=== PATIENT | female | born 1995 | race Caucasian/White ===

== ENCOUNTER 2023-12-05 18:58 | Inpatient (IN) | payer BC ==
[~2023-12-05 18:58] MED LIST: Bupivacaine 0.25% 10 ML SDV ONE
[2023-12-05] MEDS ORDERED: Sodium Chloride 0.9% 10 ML Syringe FLUSH PRN (19:11)
[2023-12-05] MEDS ORDERED: Lidocaine 1% 50 ML MDV INJECT PRN (19:11)
[2023-12-05] MEDS ORDERED: fentaNYL 100 MCG/2 ML SDV IVPUSH PRN (19:11)
[2023-12-05] MEDS: Misoprostol 100 MCG Tab VAG SCH (19:29)
[2023-12-05] MEDS: Lactated Ringers 1,000 ML IV SCH (19:59)
[2023-12-05] MEDS: LORazepam 2 MG/ML SDV IVPUSH PRN (20:09)
[2023-12-05 20:32] LABS: BASOPHILS PERCENT AUTO 0.5 % (0.0-1.0); EOSINOPHILS ABSOLUTE AUTO 0.1 K/mm3 (0.0-0.4); EOSINOPHILS PERCENT AUTO 1.5 % (0.0-6.0); HEMATOCRIT 37.4 % (37.0-47.0); HEMOGLOBIN 12.7 gm/dl (12.0-16.0); IMMATURE GRAN ABSOLUTE AUTO 0.02 K/mm3 (0.00-0.05); IMMATURE GRAN PERCENT AUTO 0.3 % (0.0-0.4); LYMPHOCYTES ABSOLUTE AUTO 2.6 K/mm3 (1.0-4.8); LYMPHOCYTES PERCENT AUTO 33.5 % (24.0-44.0); MEAN CORPUSCULAR HEMOGLOBIN 27.3 pg (28.0-32.0); MEAN CORPUSCULAR VOLUME 80.3 fl (83.0-99.0); MONOCYTES ABSOLUTE AUTO 0.4 K/mm3 (0.0-0.8); MONOCYTES PERCENT AUTO 5.4 % (0.0-8.0); NEUTROPHILS ABSOLUTE AUTO 4.6 K/mm3 (1.8-7.7); NEUTROPHILS PERCENT AUTO 58.8 % (41.0-71.0); PLATELET COUNT,PLT 229 K/mm3 (150-400); RED BLOOD CELL COUNT 4.66 M/mm3 (4.10-5.30); WHITE BLOOD CELL COUNT,WBC 7.84 K/mm3 (3.9-11.3)
[2023-12-05 20:49] LABS: A/G RATIO 0.7 (1-2); ALANINE AMINOTRANSFERASE,ALT 8 U/L (14-59); ALKALINE PHOSPHATASE 64 U/L (46-116); ANION GAP 13.5 (5-15); ASPARTATE AMNIOTRANSFERASE,AST 10 U/L (15-37); BILIRUBIN TOTAL 0.2 mg/dL (0.2-1.0); BLOOD UREA NITROGEN,BUN 13 mg/dL (7-18); CALCIUM 8.9 mg/dL (8.5-10.1); CARBON DIOXIDE,CO2 24 mEq/L (21-32); CHLORIDE,CL 106 mEq/L (98-107); CREATININE 0.5 mg/dL (0.55-1.02); ESTIMATED GFR 130 mL/min (>60); GLUCOSE RANDOM 92 mg/dL (70-99); POTASSIUM,K 3.5 mEq/L (3.5-5.1); PROTEIN TOTAL,TP 7.2 g/dl (6.4-8.2); SODIUM,NA 140 mEq/L (136-145)
[2023-12-05] MEDS ORDERED: Sodium Chloride 0.9% 10 ML Syringe FLUSH SCH (21:00)
[2023-12-05] MEDS ORDERED: diphenhydrAMINE 50 MG/ML SDV IVPUSH PRN (21:15)
[2023-12-05] MEDS ORDERED: ePHEDrine 50 MG/ML SDV IVPUSH PRN (21:15)
[2023-12-05] MEDS: Bupivacaine/fentaNYL/NS 100 ML Bag EPIDUR PRN (21:27)
[2023-12-05] MEDS: fentaNYL 100 MCG/2 ML SDV EPIDUR PRN (21:27)
[2023-12-05 21:30] LABS: RAPID PLASMA REAGIN,RPR NON-REACTIVE (NONREACTIVE)
[2023-12-05 21:46] LABS: HEPATITIS C AB NON-REACTIVE (Non-React); HIV RAPID SCREEN RLFX COMFIRM NON-REACTIVE (Non-React)
[2023-12-05] MEDS: Ondansetron 4 MG/2 ML SDV IVPUSH PRN (22:46)
[2023-12-06] MEDS ORDERED: Sodium Chloride 0.9% 1,000 ML IV ONE (02:06)
[2023-12-06] MEDS ORDERED: Methylergonovine 0.2 MG/1 ML Amp IM PRN (02:52)
[2023-12-06] MEDS ORDERED: Acetaminophen 325 MG Tab PO PRN (02:53)
[2023-12-06] MEDS: Acetaminophen/oxyCODONE 325-5 MG Tab PO ONE (10:03)
[2023-12-06] MEDS: Ibuprofen 600 MG Tab PO SCH (10:03)
[2023-12-06 11:30] VITALS: BP 133/81; PULSE 86
[2023-12-07 12:47] LABS: HEP B SURFACE AG Negative (Negative)
[2023-12-07 18:42] LABS: B2GLYCPRT1 IGG AB <10 SGU (<=20); B2GLYCPRT1 IGM AB <10 SMU (<=20)
== END 2023-12-06 13:25 | disposition home or self-care (01) | DRG 560 ==
LOC: JD.OBCHECK 18:58 → JD.OB 19:06 → JD.OBCHECK 19:52 → JD.OB 19:52 → OBSVTOIN 12-06 02:54
PROVIDERS: ADMIT Obstetrics & Gynecology; ATTEND Obstetrics & Gynecology
PROC: 10D17Z9 Manual Extraction of Products of Conception, Retained, Via Natural or Artificial Opening (ICD-10-PCS; principal; 2023-12-06)
PROC: 3E0P7VZ Introduction of Hormone into Female Reproductive, Via Natural or Artificial Opening (ICD-10-PCS; 2023-12-06)
PROC: 3E0R3BZ Introduction of Anesthetic Agent into Spinal Canal, Percutaneous Approach (ICD-10-PCS; 2023-12-06)
PROC: 00HU33Z Insertion of Infusion Device into Spinal Canal, Percutaneous Approach (ICD-10-PCS; 2023-12-06)
DX: O02.1 Missed abortion (principal); Z37.1 Single stillbirth; O99.344 Other mental disorders complicating childbirth; F41.9 Anxiety disorder, unspecified; Z3A.14 14 weeks gestation of pregnancy
CPT/HCPCS: 36415; 51701; 80053; 83036; 85025; 85610; 85613; 85730; 86146; 86147; 86592; 86762; 86803; 86850; 86900; 86901; 87340; 88233; A9270-GY; G0433; J0665; J2060; J2210; J2405; J3010; J3490; J7120

== ENCOUNTER 2024-02-14 21:18 | Emergency (ER) | payer BC ==
[2024-02-14 22:14] LABS: BASOPHILS PERCENT AUTO 0.5 % (0.0-1.0); EOSINOPHILS ABSOLUTE AUTO 0.2 K/mm3 (0.0-0.4); EOSINOPHILS PERCENT AUTO 2.3 % (0.0-6.0); HEMOGLOBIN 13.2 gm/dl (12.0-16.0); IMMATURE GRAN ABSOLUTE AUTO 0.03 K/mm3 (0.00-0.05); IMMATURE GRAN PERCENT AUTO 0.4 % (0.0-0.4); LYMPHOCYTES ABSOLUTE AUTO 3.4 K/mm3 (1.0-4.8); LYMPHOCYTES PERCENT AUTO 42.6 % (24.0-44.0); MEAN CORPUSCULAR HEMOGLOBIN 25.4 pg (28.0-32.0); MEAN CORPUSCULAR HGB CONC 32.2 g/dl (32.0-36.0); MEAN CORPUSCULAR VOLUME 78.8 fl (83.0-99.0); MEAN PLATELET VOLUME 9.3 fl (9.4-12.3); MONOCYTES ABSOLUTE AUTO 0.4 K/mm3 (0.0-0.8); MONOCYTES PERCENT AUTO 4.9 % (0.0-8.0); NEUTROPHILS ABSOLUTE AUTO 3.9 K/mm3 (1.8-7.7); NEUTROPHILS PERCENT AUTO 49.3 % (41.0-71.0); PLATELET COUNT,PLT 255 K/mm3 (150-400); WHITE BLOOD CELL COUNT,WBC 7.88 K/mm3 (3.9-11.3)
[2024-02-14] MEDS: Ondansetron 4 MG/2 ML SDV IVPUSH ONE (22:14)
[2024-02-14 22:15] LABS: APPEARANCE,URINE CLEAR (Clear); BILIRUBIN,URINE NEGATIVE (Negative); COLOR,URINE YELLOW (Yellow); GLUCOSE,URINE NEGATIVE (Negative); KETONES,URINE NEGATIVE (Negative); LEUKOCYTE ESTERASE,URINE NEGATIVE (Negative); NITRITE,URINE NEGATIVE (Negative); OCCULT BLOOD,URINE NEGATIVE (Negative); PROTEIN,URINE NEGATIVE (Negative); UROBILINOGEN,URINE 0.2 (0.2-1.0)
[2024-02-14] MEDS: Sodium Chloride 0.9% 1,000 ML IV ONE (22:15)
[2024-02-14] MEDS: Morphine 4 MG/ML Syringe IVPUSH ONE (22:15)
[2024-02-14 22:23] LABS: BACTERIA,URINE FEW /hpf (FEW); RBC,URINE 0-5 /hpf (0-5); SQUAMOUS EPITHELIAL CELLS,UR 0-5 /hpf (0-5); WBC,URINE 0-5 /hpf (0-5)
[2024-02-14 22:24] LABS: MUCUS,URINE MANY /hpf (FEW)
[2024-02-14 22:38] LABS: A/G RATIO 0.9 (1-2); ALANINE AMINOTRANSFERASE,ALT 20 U/L (14-59); ALBUMIN 3.5 g/dl (3.4-5.0); ALKALINE PHOSPHATASE 87 U/L (46-116); ANION GAP 12.6 (5-15); ASPARTATE AMNIOTRANSFERASE,AST 19 U/L (15-37); BILIRUBIN TOTAL 0.2 mg/dL (0.2-1.0); BLOOD UREA NITROGEN,BUN 21 mg/dL (7-18); BUN/CREATININE RATIO 26.3 (14-18); CALCIUM 9.2 mg/dL (8.5-10.1); CARBON DIOXIDE,CO2 27 mEq/L (21-32); CHLORIDE,CL 103 mEq/L (98-107); CREATININE 0.8 mg/dL (0.55-1.02); ESTIMATED GFR 102 mL/min (>60); GLUCOSE RANDOM 114 mg/dL (70-99); POTASSIUM,K 3.6 mEq/L (3.5-5.1); PROTEIN TOTAL,TP 7.6 g/dl (6.4-8.2); SODIUM,NA 139 mEq/L (136-145)
[2024-02-14] MEDS: Iopamidol 612 MG/ML 100 ML Bottle IVPUSH ONE (23:22)
[2024-02-14] MEDS: LORazepam 1 MG Tab PO ONE (23:37)
[2024-02-15 00:52] VITALS: BP 118/85; PULSE 88
== END 2024-02-15 00:55 | disposition home or self-care (01) ==
LOC: JD.ED 21:18
DX: R10.32 Left lower quadrant pain (principal); Z91.018 Allergy to other foods; Z79.899 Other long term (current) drug therapy
CPT/HCPCS: 36415; 74177; 80053; 81001; 81025; 85025; 96361; 96374; 96375; 99284; A9270; J2270; J2405; J7030; Q9967

== ENCOUNTER 2025-05-15 14:21 | Emergency (ER) | payer SELFPAY ==
[2025-05-15] MEDS ORDERED: Sodium Chloride 0.9% 10 ML Syringe FLUSH PRN (14:53)
[2025-05-15 15:08] LABS: BASOPHILS ABSOLUTE AUTO 0.0 K/mm3 (0.0-0.2); BASOPHILS PERCENT AUTO 0.3 % (0.0-1.0); EOSINOPHILS ABSOLUTE AUTO 0.1 K/mm3 (0.0-0.4); EOSINOPHILS PERCENT AUTO 0.8 % (0.0-6.0); IMMATURE GRAN ABSOLUTE AUTO 0.02 K/mm3 (0.00-0.05); IMMATURE GRAN PERCENT AUTO 0.3 % (0.0-0.4); LYMPHOCYTES ABSOLUTE AUTO 2.2 K/mm3 (1.0-4.8); LYMPHOCYTES PERCENT AUTO 29.3 % (24.0-44.0); MEAN PLATELET VOLUME 9.4 fl (9.4-12.3); MONOCYTES ABSOLUTE AUTO 0.3 K/mm3 (0.0-0.8); MONOCYTES PERCENT AUTO 4.6 % (0.0-8.0); NEUTROPHILS ABSOLUTE AUTO 4.8 K/mm3 (1.8-7.7); NEUTROPHILS PERCENT AUTO 64.7 % (41.0-71.0); NRBC ABSOLUTE 0.00 (0.00-0.02); NRBC PERCENT 0.0 % (0.0-0.2); PLATELET COUNT,PLT 212 K/mm3 (150-400); RED BLOOD CELL COUNT 5.15 M/mm3 (4.10-5.30); WHITE BLOOD CELL COUNT,WBC 7.38 K/mm3 (3.9-11.3)
[2025-05-15] MEDS: Ondansetron 4 MG/2 ML SDV IVPUSH ONE ×2 (15:16→17:12)
[2025-05-15 15:44] LABS: A/G RATIO 0.7 (1-2); ASPARTATE AMNIOTRANSFERASE,AST 13 U/L (15-37); BILIRUBIN TOTAL 0.3 mg/dL (0.2-1.0); BLOOD UREA NITROGEN,BUN 9 mg/dL (7-18); CARBON DIOXIDE,CO2 23 mEq/L (21-32); CHLORIDE,CL 102 mEq/L (98-107); CREATININE 0.5 mg/dL (0.55-1.02); EST CRCL DRUG DOSING (CG) 136.09 mL/min; ESTIMATED GFR 129 mL/min (>60); GLUCOSE RANDOM 80 mg/dL (70-99); POTASSIUM,K 3.2 mEq/L (3.5-5.1); PROTEIN TOTAL,TP 7.4 g/dl (6.4-8.2); SODIUM,NA 139 mEq/L (136-145); TROPONIN I HIGH SENSITIVITY 4 pg/mL (<=51)
[2025-05-15 15:52] LABS: LACTIC ACID 3.4 mmol/L (0.4-2.0)
[2025-05-15 16:05] LABS: ALANINE AMINOTRANSFERASE,ALT < 6 U/L (14-59)
[2025-05-15 16:42] LABS: APPEARANCE,URINE CLOUDY (Clear); GLUCOSE,URINE NEGATIVE (Negative); OCCULT BLOOD,URINE NEGATIVE (Negative)
[2025-05-15 17:00] LABS: EPITHELIAL CELLS,URINE 0-5 /hpf (0-5)
[2025-05-15 19:45] VITALS: BP 113/82; PULSE 58
== END 2025-05-15 19:29 | disposition home or self-care (01) ==
LOC: JD.ED 14:21
DX: O21.0 Mild hyperemesis gravidarum (principal); O99.281 Endocrine, nutritional and metabolic diseases complicating pregnancy, first trimester; E87.6 Hypokalemia; E87.20 Acidosis, unspecified; Z3A.11 11 weeks gestation of pregnancy; Z91.048 Other nonmedicinal substance allergy status
CPT/HCPCS: 36415; 76801; 80053; 81001; 82947; 83605; 83735; 84484; 84703; 85025; 93005; 96365; 96375; 96376; 99285; J2405; J3480; J7030; 93010; 99283